=== PATIENT | male | born 1985 | race Caucasian/White ===

== ENCOUNTER 2019-05-20 11:49 | Emergency (ER) | payer SELFPAY ==
--- NOTE | 2019-05-20 12:42 | Event Note ---
ED Screening Note ED Screening Note: depression, anxiety SI last night states his girlfriend said he told her he wanted to "hang himself last night" he states his plan is to hang himself with a belt or cut himself with a knife states he fears that he wants to hurt someone else he has never been to psych facility before he has harmed himself before by cutting his wrists PMHx herniated disc no allergies to meds non smoker non drinker no drug use This initial assessment/diagnostic orders/clinical plan/treatment(s) is/are subject to change based on patients health status, clinical progression and re- assessment by fellow clinical providers in the ED. Further treatment and workup at subsequent clinical providers discretion. Patient/guardian urged not to elope from the ED as their condition may be serious if not clinically assessed and managed. Initial orders include: medical clearance
[2019-05-20 13:23] LABS: Basophils % (Auto) 0.6 % (0.0-1.8); Eosinophils # (Auto) 0.1 K/mm3 (0.0-0.4); Hematocrit 43.3 % (35.5-45.6); Hemoglobin 14.4 gm/dl (11.8-15.2); Lymphocytes # (Auto) 1.7 K/mm3 (1.2-5.4); Lymphocytes % (Auto) 30.9 % (13.4-35.0); Mean Corpuscular HGB Conc 33 % (32-34); Mean Corpuscular Volume 90 fl (84-94); Monocytes # (Auto) 0.4 K/mm3 (0.0-0.8); Monocytes % (Auto) 7.3 % (0.0-7.3); Platelet Count 270 K/mm3 (140-440); Red Blood Count 4.81 M/mm3 (3.65-5.03); Red Cell Distribution Width 12.2 % (13.2-15.2)
[2019-05-20 13:44] LABS: Alanine Aminotransferase 15 units/L (7-56); Albumin 4.9 g/dL (3.9-5); BUN/Creatinine Ratio 16; Blood Urea Nitrogen 14 mg/dL (9-20); Calcium 9.7 mg/dL (8.4-10.2); Hemolysis Index 28
--- NOTE | 2019-05-20 13:57 | Emergency Department Report ---
ED Psych HPI - General Chief Complaint: Psych Stated Complaint: DEPRESSION, THOUGHTS OF HURTING MYSELF Time Seen by Provider: 05/20/19 12:39 Source: patient Mode of arrival: Ambulatory - History of Present Illness Initial Comments: Patient is 34 years old male with history of depression. Patient presented to the ER accompanied by his girlfriend for evaluation of severe depression and suicidal ideation. Patient girlfriend stated that he told her last night that he wanted to hang himself. Patient has been treated for depression since January. Patient admitted that he is thinking about killing himself. Patient denied any homicidal ideation. No auditory or visual hallucination. MD Complaint: suicidal ideation, feels depressed -: days(s) Associated Psychiatric Symptoms: depression, suicidal ideation History of same: Yes Worsens With: none Associated Symptoms: denies other symptoms Treatments Prior to Arrival: none If Self Harm: admits thoughts of, has plan, self-inflicted trauma - Related Data Home Medications Medication Instructions Recorded Confirmed Last Taken Cannabidiol (Cbd) Extract 600 mg PO QDAY 05/20/19 05/20/19 05/19/19 20:00 Paroxetine 20 mg PO QDAY 05/20/19 05/20/19 05/19/19 20:00 Allergies Allergy/AdvReac Type Severity Reaction Status Date / Time No Known Allergies Allergy Unverified 05/20/19 11:57 ED Review of Systems ROS: Stated complaint: DEPRESSION, THOUGHTS OF HURTING MYSELF Other details as noted in HPI Comment: All other systems reviewed and negative Constitutional: denies: chills, diaphoresis, fever Respiratory: denies: cough, shortness of breath Cardiovascular: denies: chest pain, palpitations Gastrointestinal: denies: abdominal pain, nausea, vomiting Musculoskeletal: denies: back pain Neurological: denies: headache, weakness Psychiatric: depression, suicidal thoughts. denies: auditory hallucinations, visual hallucinations, homicidal thoughts ED Past Medical Hx - Past Medical History Previous Medical History?: Yes Hx Psychiatric Treatment: Yes (Anxiety/Depression/OCD) - Surgical History Past Surgical History?: Yes Additional Surgical History: Nose surgery - Social History Smoking Status: Never Smoker Substance Use Type: None - Medications Home Medications: Home Medications Medication Instructions Recorded Confirmed Last Taken Type Cannabidiol (Cbd) Extract 600 mg PO QDAY 05/20/19 05/20/19 05/19/19 20:00 History Paroxetine 20 mg PO QDAY 05/20/19 05/20/19 05/19/19 20:00 History ED Physical Exam - General Limitations: Language Barrier General appearance: alert, in no apparent distress, other (Patient looks very depressed.) - Head Head exam: Present: atraumatic, normocephalic, normal inspection - Eye Eye exam: Present: normal appearance - ENT ENT exam: Present: normal exam, normal orophraynx, mucous membranes moist - Neck Neck exam: Present: normal inspection, full ROM. Absent: tenderness, meningismus, lymphadenopathy, thyromegaly - Respiratory Respiratory exam: Present: normal lung sounds bilaterally - Cardiovascular Cardiovascular Exam: Present: regular rate, normal rhythm, normal heart sounds - GI/Abdominal GI/Abdominal exam: Present: soft, normal bowel sounds. Absent: distended, tenderness, guarding, rebound, rigid, organomegaly, mass, bruit, pulsatile mass, hernia - Extremities Exam Extremities exam: Present: normal inspection, full ROM, normal capillary refill. Absent: pedal edema, calf tenderness - Back Exam Back exam: Present: normal inspection, full ROM. Absent: CVA tenderness (R), CVA tenderness (L) - Neurological Exam Neurological exam: Present: alert, oriented X3, CN II-XII intact, normal gait, reflexes normal - Psychiatric Psychiatric exam: Present: depressed, suicidal ideation. Absent: agitated, anxious, flat affect, manic, homicidal ideation - Skin Skin exam: Present: warm, intact, normal color ED Course Vital Signs 05/20/19 05/20/19 05/20/19 12:39 15:06 19:58 Temperature 98.1 F 97.9 F Pulse Rate 67 72 Respiratory 18 18 16 Rate Blood Pressure 116/75 Blood Pressure 106/69 [Right] O2 Sat by Pulse 100 18 L 98 Oximetry 05/20/19 05/21/19 05/21/19 20:16 02:08 08:32 Temperature 97.8 F 98.3 F Pulse Rate 44 L 67 Respiratory 16 18 15 Rate Blood Pressure Blood Pressure 105/55 110/69 [Right] O2 Sat by Pulse 98 99 98 Oximetry 05/21/19 05/22/19 05/22/19 19:50 02:15 08:46 Temperature 98.3 F 97.7 F 97.6 F Pulse Rate 66 47 L 100 H Respiratory 16 16 Rate Blood Pressure Blood Pressure 107/57 104/59 116/64 [Right] O2 Sat by Pulse 97 99 100 Oximetry 05/22/19 05/22/19 05/22/19 08:54 15:00 17:48 Temperature 97.5 F L Pulse Rate 57 L 88 Respiratory 16 18 19 Rate Blood Pressure Blood Pressure 112/68 114/76 [Right] O2 Sat by Pulse 100 99 100 Oximetry 05/22/19 05/22/19 05/23/19 20:00 20:23 01:15 Temperature 97.8 F 98.0 F Pulse Rate 77 86 Respiratory 18 18 20 Rate Blood Pressure Blood Pressure 100/59 108/61 [Right] O2 Sat by Pulse 98 98 Oximetry 05/23/19 05/23/19 05/23/19 09:00 16:14 19:47 Temperature 97.5 F L 98.2 F 98.1 F Pulse Rate 57 L 75 68 Respiratory 18 20 18 Rate Blood Pressure Blood Pressure 112/68 98/66 93/60 [Right] O2 Sat by Pulse 99 99 99 Oximetry 05/23/19 05/24/19 05/24/19 19:58 01:00 07:00 Temperature 97.9 F 98.3 F Pulse Rate 70 63 Respiratory 18 20 18 Rate Blood Pressure Blood Pressure 105/65 106/60 [Right] O2 Sat by Pulse 100 100 99 Oximetry ED Medical Decision Making - Lab Data Result diagrams: 05/20/19 13:00 05/20/19 13:00 Critical care attestation.: If time is entered above; I have spent that time in minutes in the direct care of this critically ill patient, excluding procedure time. ED Disposition Clinical Impression: Depression, Suicidal ideation Disposition: [id number]/[id number] PS[facility] HOSP/PSY UNIT Is pt being admited?: No Condition: Stable Referrals: PRIMARY CARE, [Primary Care Provider] - 3-5 Days
[2019-05-20 14:01] LABS: Bilirubin,Urine NEG (Negative); Blood,Urine NEG (Negative); Color,Urine Yellow (Yellow); Mucus,Urine FEW /HPF; Protein,Urine <15 mg/dL mg/dL (Negative); Urobilinogen,Urine < 2.0 mg/dL (<2.0)
[2019-05-20 14:31] LABS: Amphetamine Screen,Urine PRESUMPTIVE NEGATIVE; Benzodiazepines Screen,Urine PRESUMPTIVE NEGATIVE; Cannabinoid Screen,Urine PRESUMPTIVE NEGATIVE; Cocaine Screen,Urine PRESUMPTIVE NEGATIVE; Methadone Screen,Urine PRESUMPTIVE NEGATIVE; Opiate Screen,Urine PRESUMPTIVE NEGATIVE
[2019-05-20] MEDS ORDERED: NON-FORMULARY EACH (Paroxetine 20 MG) PO SCH (20:30)
[2019-05-20] MEDS ORDERED: ALPRAZolam 0.5 MG TAB PO ONE (20:32)
--- NOTE | 2019-05-22 14:07 | Consultation ---
History of Present Illness - Reason for Consult Consult date: 05/22/19 Reason for consult: SI - History of Present Psychiatric Illness Miles Vieira is a 34y/o male patient who presented to the ER for suicidal and homicidal ideation with a plan to hang himself. During my interview with the patient today, he is a/o x 3. He makes poor eye contact. He is calm and coopera tive. His girlfriend is with him at bedside. The patient is led to a private room, but requests his girlfriend is with him in the room during the interview. The patient states he "wants to kill himself and other people." The patient says "he's depressed and was thinking about hanging myself." His girlfriend says "he's been getting worse, and having a fear that he's going to attack someone." She says the patient "got like this after taking paroxetine." The girlfriend says the patient "doesn't know what's real or whats false." She says the patient "does not sleep and has a poor appetite." The patient says he "hasn't seen a psychiatrist since being here but saw one in [place]." They say the patient was being treated for "depression, anxiety and panic attacks." PAST PSYCHIATRIC HISTORY: Diagnoses: depression, anxiety and panic attacks Suicide attempts or Self-harm behavior: three times Prior psychiatric hospitalizations: yes Substance Abuse history: Denies Previous psychiatric medications tried: Pito seroquel Outpatient treatment: Denies, only in [place] PAST MEDICAL HISTORY: Two herniated discs Family Psychiatric History None reported or documented SOCIAL HISTORY Marital Status: Single Living Arrangements: Alone Employment Status: Employed Access to guns/weapons: Denies Education: Some college History of Abuse: Denies ROS: Constitutional: Negative for weight loss ENT: Negative for stridor Respiratory: Negative for cough or hemoptysis All other systems reviewed and are negative MENTAL STATUS General Appearance: Dressed appropriately Behavior: calm and cooperative, poor eye contact Mood: "depressed" Affect: Congruent Thought Process: Goal-directed Speech: Normal tone and pace Suicidal Ideation: Yes Homicidal Ideation: Yes Hallucinations: Denies Delusions: Yes Insight and Judgment: Poor Memory/Cognition: Fair Diagnoses: Major Depressive Disorder, Severe w/o Psychotic Features Plan Zoloft 25mg po daily Olanzapine 2.5mg po daily Doxepin 10mg po qhs Melatonin 5mg po qhs prn insomnia Haldol 5mg IM q6h prn agitation Vistaril 25mg po q6h prn anxiety Medical: Per primary Sitter: Defer to primary Disposition: The patient meets the requirement for acute hospitalization at this time. He may transfer to an acute psychiatric facility once medically cleared. Will continue to follow the patient until he is transferred or his condition improves enough for discharge Please call with any questions or concerns. Thank you for this consult. Medications and Allergies Allergies Allergy/AdvReac Type Severity Reaction Status Date / Time No Known Allergies Allergy Unverified 05/20/19 11:57 Home Medications Medication Instructions Recorded Confirmed Last Taken Type Cannabidiol (Cbd) Extract 600 mg PO QDAY 05/20/19 05/20/19 05/19/19 20:00 History Paroxetine 20 mg PO QDAY 05/20/19 05/20/19 05/19/19 20:00 History Mental Status Exam - Vital signs Last Vital Signs Temp 97.6 F 05/22/19 08:46 Pulse 100 H 05/22/19 08:46 Resp 16 05/22/19 08:54 BP 116/64 05/22/19 08:46 Pulse Ox 100 05/22/19 08:54 Results Result Diagrams: 05/20/19 13:00 05/20/19 13:00 All other labs normal.
[2019-05-22] MEDS ORDERED: hydrOXYzine PAMOATE 25 MG CAP PO PRN (14:14)
[2019-05-22] MEDS ORDERED: HALOPERIDOL LACTATE 5 MG/1 ML INJ IM PRN (14:30)
[2019-05-22] MEDS ORDERED: SERTRALINE 25 MG TAB PO SCH (15:00)
[2019-05-22] MEDS: SERTRALINE 25 MG TAB PO SCH (15:16)
[2019-05-22] MEDS ORDERED: MELATONIN 5 MG TAB PO PRN (22:00)
[2019-05-22] MEDS: DOXEPIN 10 MG CAP PO SCH (22:23)
[2019-05-23] MEDS: SERTRALINE 25 MG TAB PO SCH (10:05)
--- NOTE | 2019-05-23 11:37 | Progress Note ---
Subjective - Reason for Consult Consult date: 05/23/19 Reason for consult: suicidal - Chief Complaint Chief complaint: The patient's medical record was reviewed and the patient's progress was discussed with the nursing staff. During my interview with the patient today, he is dressed appropriately. He is calm and cooperative. He makes poor eye contact. His girlfriend is with him translating, who the patient requests that she is present during the interview. He says he "feels better since taking the meds, but I have moments of depression." He says "the suicidal thoughts come and go." He also says "at times the feeling that I might attack someone comes and goes." The patient says he "feels calm" but states "noises from other patient's irritates me." He says "the medication made me sleep good." The patient says his appetite is "not great." ROS: Constitutional: Negative for weight loss ENT: Negative for stridor Respiratory: Negative for cough or hemoptysis All other systems reviewed and are negative MENTAL STATUS General Appearance: Dressed appropriately Behavior: calm and cooperative, poor eye contact Mood: "feels better, moments of depression" Affect: Congruent Thought Process: Goal-directed Speech: Normal tone and pace Suicidal Ideation: Yes, comes and goes Homicidal Ideation: Yes, comes and goes Hallucinations: Denies Delusions: None elicited Insight and Judgment: Poor Memory/Cognition: Fair Diagnoses: Major Depressive Disorder, Severe w/o Psychotic Features Plan Increased Olanzapine 5mg po daily Medical: Per primary Sitter: Defer to primary Disposition: The patient meets the requirement for acute hospitalization at this time. He may transfer to an acute psychiatric facility once medically cleared. Will continue to follow the patient until he is transferred or his condition improves enough for discharge Please call with any questions or concerns. Thank you for this consult. Mental Status Exam - Vital signs Last Vital Signs Temp 97.5 F L 05/23/19 09:00 Pulse 57 L 05/23/19 09:00 Resp 18 05/23/19 09:00 BP 112/68 05/23/19 09:00 Pulse Ox 99 05/23/19 09:00
[2019-05-23] MEDS: DOXEPIN 10 MG CAP PO SCH (22:09)
[2019-05-24 09:55] VITALS: BP 106/60
== END 2019-05-24 09:15 ==
LOC: ED 11:49 → EEVIPCON 11:49 → ED 05-24 09:15
DX: F32.9 Major depressive disorder, single episode, unspecified (principal); R45.851 Suicidal ideations; F41.9 Anxiety disorder, unspecified
CPT/HCPCS: 36415; 80053; 80307; 80320; 81001; 82550; 85025; G0480